=== PATIENT | male | born 1955 | race Caucasian/White ===

== ENCOUNTER 2016-07-07 13:36 | Emergency (ER) | payer BC ==
[~2016-07-07] VITALS: Ht 167.6 cm; Wt 86.0 kg
[2016-07-07 13:41] VITALS: BP 142/94; PULSE 94; RESP 17; TEMP 98; O2SAT 94
[2016-07-07] MEDS ORDERED: LISI40TA PO (14:09)
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
[2016-07-07] MEDS ORDERED: HYDR-3516 PO (15:43)
== END 2016-07-07 16:12 | disposition home or self-care (01) ==
LOC: PHEFT 13:36
DX: S82.55XA Nondisplaced fracture of medial malleolus of left tibia, initial encounter for closed fracture (principal); S83.412A Sprain of medial collateral ligament of left knee, initial encounter; I10 Essential (primary) hypertension; V28.3XXA Person boarding or alighting a motorcycle injured in noncollision transport accident, initial encounter; Y93.9 Activity, unspecified; Y92.9 Unspecified place or not applicable; Y99.9 Unspecified external cause status
CPT/HCPCS: 73560; 73600; 99283; E0113; L1830; L1906